=== PATIENT | male | born 1990 | race Two or more races ===

== ENCOUNTER 2019-09-04 00:21 | Emergency (ER) | payer SELFPAY ==
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
[2019-09-04 00:21] VITALS: BP 123/93; PULSE 84; RESP 14; TEMP 36.3; O2SAT 100
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
[2019-09-04] MEDS: CYCLOBENZAPRINE HCL 10 MG TABLET PO (00:50)
[2019-09-04] MEDS: IBUPROFEN 400 MG TABLET 800 MG PO (00:50)
[2019-09-04 01:20] VITALS: TEMP 36.3
[2019-09-04 01:54] VITALS: BP 111/70; PULSE 77; RESP 20; O2SAT 100
== END 2019-09-04 01:56 | disposition home or self-care (01) ==
PROVIDERS: Emergency Provider General Practice
DX: S16.1XXA Strain of muscle, fascia and tendon at neck level, initial encounter (principal); S39.012A Strain of muscle, fascia and tendon of lower back, initial encounter; M25.511 Pain in right shoulder; V43.52XA Car driver injured in collision with other type car in traffic accident, initial encounter
CPT/HCPCS: 72125; 73030; 99284; A9270

== ENCOUNTER 2020-08-12 11:52 | Observation (INO) | payer OTHER, SELFPAY ==
[2020-08-12] VITALS (7 sets, daily range): BP systolic 110–145; BP diastolic 64–96; PULSE 100–115; RESP 14–21; TEMP 36.3–37.1; O2SAT 98–99; BMI 27.3
--- NOTE | ~2020-08-12 | CT_ITS ---
EXAMINATION: CT soft tissue neck w con DATE: 08/12/2020 16:56 INDICATION: Sore throat. Abscess. TECHNIQUE: Computed tomography (CT) of the neck was performed with 75 mL Omnipaque-350 intravenous co ntrast. Automated exposure control and iterative reconstruction technique were employed. The dose-christophe gth product was 507.29 mGy-cm. COMPARISON: Cervical spine CT 09/04/2019 FINDINGS: The adenoids and palatine tonsils are enlarged. There is mild bilateral high internal jugul ar chain lymphadenopathy. There is mildly enlarged left mid internal jugular chain lymph node. There is mild mucosal thickening in the paranasal sinuses. There is a carious lesion of tooth #1. IMPRESSION: 1. Enlarged adenoids and palatine tonsils. No abscess. 2. Carious lesion of tooth #1. 3. Mild bilateral internal jugular chain lymphadenopathy, likely reactive. Reviewed, dictated and finalized at location A.
--- NOTE | ~2020-08-12 | XR_ITS ---
EXAMINATION: XR chest 1V portable INDICATION: Head congestion and cough TECHNIQUE: Portable AP chest at 1555 hours COMPARISON: 01/30/2017 FINDINGS: There are patchy opacities of the lung bases. No pleural effusion or pneumothorax is identi fied. The cardiomediastinal silhouette is normal. IMPRESSION: 1. Patchy opacities of the lung bases, consistent with atelectasis versus pneumonia. Reviewed, dictated and finalized at location B. IMPRESSION: 1. Patchy opacities of the lung bases, consistent with atelectasis versus pneum onia.
--- NOTE | ~2020-08-12 | CT_ITS ---
EXAMINATION: CT chest abdomen pelvis wo con DATE: 08/13/2020 09:23 INDICATION: Cough. Leukocytosis. TECHNIQUE: Computed tomography (CT) of the chest, abdomen, and pelvis was performed without intraveno us contrast. Automated exposure control and iterative reconstruction technique were employed. The dos e-length product was 701.12 mGy-cm. COMPARISON: None FINDINGS: CHEST CT: Lungs are clear with no pneumonia or other pulmonary infiltrates, pulmonary edema, pleural effusion o r pneumothorax. Heart size is normal. No pericardial effusion. Thoracic aorta is normal in caliber. S mall amount of wispy soft tissue and stress with fat in the anterior mediastinum with the multangular configuration of residual thymic tissue. No pathologically enlarged thoracic lymphadenopathy. Bones are unremarkable. ABDOMEN/PELVIS CT: Liver, gallbladder, pancreas, bilateral adrenal glands and kidneys are normal. Splenomegaly measuring 16.5 cm maximal craniocaudal length. There are few scattered colonic diverticula without adjacent in flammatory change to suggest diverticulitis. Small bowel and appendix are normal. There is increased density in the bladder which are absent residual excreted contrast from an earlier contrast-enhanced CT of the neck performed 1 day prior. No free intraperitoneal gas or fluid. No pathologically enlarge d abdominal or pelvic lymphadenopathy. Bones are unremarkable. IMPRESSION: 1. Clear lungs. No acute cardiopulmonary disease. 2. Nonspecific splenomegaly. No other acute intra-abdominal/pelvic process. Reviewed, dictated and finalized at location A.
--- NOTE | 2020-08-12 14:55 | ED.URI ---
HPI - URI/Sore Throat General Chief Complaint: Upper Respiratory Infection <Juan Luis Paul PA-C - Last Filed: 08/12/20 17:40> Stated Complaint: sore thoat, cold sx <Juan Luis Paul PA-C - Last Filed: 08/12/20 17:40> Time Seen by Provider: 08/12/20 14:19 <Juan Luis Paul PA-C - Last Filed: 08/12/20 17:40> Source: patient <Juan Luis Paul PA-C - Last Filed: 08/12/20 17:40> Mode of arrival: ambulatory <Juan Luis Paul PA-C - Last Filed: 08/12/20 17:40> Limitations: no limitations <Juan Luis Paul PA-C - Last Filed: 08/12/20 17:40> History of Present Illness HPI Narrative: Patient is a 30-year-old male who presents to emergency department for evaluation of upper respiratory symptoms that have been present for the last 10 days. Patient was seen in started on amoxicillin by Dr. Carranza. Patient notes he has been taking it for several days with no improvement. Notes aching pain of the throat worse with swallowing with difficulty sleeping. Patient also notes cough congestion rhinorrhea. Patient has been attempting [id number] medications with minimal improvement. <Juan Luis Paul PA-C - Last Filed: 08/12/20 17:40> Related Data Allergies/Adverse Reactions: Allergies Allergy/AdvReac Type Severity Reaction Status Date / Time No Known Allergies Allergy Verified 08/12/20 14:18 <Juan Luis Paul PA-C - Last Filed: 08/12/20 17:40> Review of Systems Review of Systems: All systems reviewed & are unremarkable except as noted in HPI and below <Juan Luis Paul PA-C - Last Filed: 08/12/20 17:40> [facility] [place] Past Medical History Medical History: Medical History Patient denies medical problems <Juan Luis Paul PA-C - Last Filed: 08/12/20 17:40> Social History Social History: Social History Smoking packs per day: 1 Smoking cigarettes per day: 20.0 Substance use: never Gender identity (if verbalized by the patient): Male <Juan Luis Paul PA-C - Last Filed: 08/12/20 17:40> Exam Narrative: Exam Narrative: GENERAL: Ill-appearing, well-nourished, and in no acute distress. HEAD: Normocephalic, atraumatic. EYES: PERRLA and EOMI. ENT: Nares clear, no rhinorrhea or epistaxis. Mucous membranes moist. Patient with erythema and slight tonsillar hypertrophy no exudate. No trismus or drooling NECK: Supple. No adenopathy or masses. No stridor CHEST: Clear to auscultation. No respiratory distress. Coarse breath sounds on auscultation HEART: Regular rate and rhythm. No murmur heard. Normal peripheral pulses. EXTREMITIES: Normal range of motion. No edema. SKIN: Warm, dry, no rash. NEURO: No focal deficits. Alert and oriented x3. PSYCH: Normal mood and affect. <Juan Luis Paul PA-C - Last Filed: 08/12/20 17:40> Course Course Emergency Course: Patient in the room at this time had improvement with medications will be brought in for pneumonia will be a person of interest reswabbed for Covid strep was negative we will also have mono test added patient agreeing to stay in hospital hemodynamically stable at this time ABCs and vital signs intact and stable <Juan Luis Paul PA-C - Last Filed: 08/12/20 17:40> LOT ASSOCIATE/PA Physician Supervision For this patient encounter, I reviewed the LOT ASSOCIATE or PA documentation, treatment plan, and medical decision making; and I had [id number] time with this patient.PAtient presented with URI symptoms for 10 days despite taking antibiotics. he has been found to be tachycardic with leukocytosis. He has sepsis due to pneumonia. He is in no acute distress. <Juany Oconnor MD - Last Filed: 08/12/20 18:19> Consultations Consultation #1: Case discussed with hospitalist Luh was agreed to accept the patient <MÓNICA Hudson Last Filed: 08/12/20 17:40> Date: 08/12/20 <Nazario Hudson
[2020-08-12] MEDS: SODIUM CHLORIDE 0.9% IV 1,000 ML 999 ML IV CONT (15:40)
[2020-08-12] MEDS: KETOROLAC 30 MG/ML VIAL (*BKC) IV PUSH (15:40)
[2020-08-12 15:59] LABS: Basophils Absolute Auto 0.2 K/mm3 (0.0-0.1); Eosinophils Absolute Auto 0.1 K/mm3 (0-0.3); Eosinophils Percent Auto 0.3 % (0-4.4); Hematocrit 41.8 % (42.0-52.0); Immature Granulocyte Absolute 0.09 K/mm3 (0.00-0.031); Immature Granulocyte Percent A 0.5 % (0-0.5); Lymphocytes Absolute Auto 10.61 K/mm3 (0.9-3.2); Lymphocytes Percent Auto 53.1 % (18.3-44.2); Mean Corpuscular HGB Conc 33.5 g/dl (32-36); Mean Corpuscular Hemoglobin 28.5 pg (26-34); Mean Corpuscular Volume 85.1 fl (80-100); Mean Platelet Volume 10.5 fl (7.4-10.4); Monocytes Absolute Auto 2.5 K/mm3 (0.1-0.6); Monocytes Percent Auto 12.7 % (2.6-8.5); Neutrophils Absolute Auto 6.5 K/mm3 (1.3-6.7); Neutrophils Percent Auto 32.4 % (45.5-73.1); Platelet Count Result 224 k/mm3 (150-375); Red Blood Count 4.91 M/mm3 (4.6-6.20); Red Cell Distribution Width 13.7 % (11.5-14.5)
[2020-08-12 16:11] LABS: Anion Gap 8 mmol/L (8-16); Blood Urea Nitrogen 11 mg/dL (9-20); CRP 7.3 mg/dL (<1.0); Calcium 9.1 mg/dL (8.4-10.2); Carbon Dioxide 24 mmol/L (22-30); Chloride 107 mmol/L (98-107); Estimated CRCL calculation 114 ml/min; Estimated Glomerular Filt Rate > 60; Glucose 99 mg/dL (75-110); Potassium 4.1 mmol/L (3.4-5.0); Sodium 139 mmol/L (137-145)
[2020-08-12 16:16] LABS: Atypical Lymphocytes Present; Platelet Estimate Adequate (Adequate)
[2020-08-12] MEDS: ALBUTEROL SULFATE (*SP) INHALER 1 PUFF (16:34)
[2020-08-12 17:47] LABS: Alanine Aminotransferase 223 U/L (4-50); Albumin Level 3.8 g/dL (3.5-5.1); Alkaline Phosphatase 85 U/L (38-126); Aspartate Amino Transferase 100 U/L (17-59); Bilirubin,Total 0.5 mg/dL (0.2-1.3)
[2020-08-12 17:48] LABS: Lactic Acid Reflex 1.1 mmol/L (0.7-2.1)
[2020-08-12 19:08] LABS: Monoscreen Positive (Negative); Negative Monotest Control Negative (Negative); Positive Monotest Control Positive (Positive)
--- NOTE | 2020-08-12 19:44 | ADMGEN ---
This patient, Praveen Chun, was admitted to [facility] Surg Room 311-01. Patient/family oriented to hospital policies and general routines including ID bracelet, bed and alarms, visiting hours, pain management, procedures, bathroom and other care routines, personal items, smoking policy, room service/diet, and visiting hours. Information on how to activate the Rapid Response Team has been discussed. Patient/Family are encouraged to report perceived risks to care and to ask questions if they do not understand what they are told or what they should do.
[2020-08-12] MEDS: LACTATED RINGERS 1,000 ML 125 ML IV CONT (19:51)
[2020-08-12] MEDS: FAMOTIDINE 20 MG/2 ML VIAL IV PUSH (20:40)
[2020-08-13] VITALS: BP 124/70; PULSE 83; RESP 18; TEMP 36.3; O2SAT 98
--- NOTE | 2020-08-13 00:03 | PM.IMHP ---
H&P: HPI History of Present Illness Date/Time: 08/12/20 23:30 Chief Complaint: Sore throat, cough Narrative: Previously healthy 30-year-old male who presented to the ER from home with upper respiratory symptoms for the last 10 days or so. The patient reported that for last 10 days he has been having severe sore throat and subjective fevers. His measure temperature was 98?. He reported that approximately 14 days ago he began having cough that was productive of small amount of sputum. He reported that the cough was bad for several days but then improved. He then subsequently developed sore throat with difficulty swallowing. He reported that the pain in his throat with a 10/10 in intensity and he was unable to sleep. He had decreased oral intake. He reported that initially with the symptoms he had had a headache that was associated with his cough. His headache has since resolved. He denies any nausea or vomiting. He has had some rhinorrhea and nasal congestion. He had tried some [id number] medications with only minimal relief in his symptoms. He was evaluated by Dr. Carranza in given the prescription for amoxicillin. He told me that he took amoxicillin for about 4 days with no relief in his symptoms. 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 He does not have any known COVID-19 exposures or ill contacts. He denies any loss of sense of taste or smell. He had a rapid strep test performed in the ER that was negative. The patient reports that his symptoms have improved significantly. In the ER he received dexamethasone, azithromycin and Rocephin. And that he has been able to eat and drink without difficulty. Review of Systems Review of Systems: Narrative: 12 systems were reviewed with pertinent positives and negatives per HPI. Except as documented in the HPI, all other systems were reviewed and are negative. [facility] Past Medical History Medical History Patient denies medical problems Surgical History Surgical History No pertinent past surgical history Family History Family History (Updated 08/13/20 @ 00:05 by Connie Gomez DO) Other No significant family history Social History Social History (Updated 08/13/20 @ 01:17 by Connie Gomez DO) Social History: He is single and has never been . He was originally from [place] but has been in the [place] for 5 years. He smokes between 1.5-2 packs of cigarettes per day since the age of 14. He only rarely drinks alcohol in small amounts. He occasionally uses marijuana. 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 Smoking packs per day: 1.5 Smoking cigarettes per day: 30.0 Years smoked: 16 Smoking pack-years: 24.00 Smoking status: Current every day smoker Tobacco type: cigarettes Alcohol intake: current Drinks per week: 1 Substance use: current Substance use type: marijuana Gender identity (if verbalized by the patient): Male Spiritual care concerns: No Meds Home Medications and Allergies Home Medications Medication Instructions Recorded Confirmed Type No Home Medications 08/12/20 08/12/20 History Allergies Allergy/AdvReac Type Severity Reaction Status Date / Time No Known Allergies Allergy Verified 08/12/20 20:21 Vital Signs Vital Signs - 24 hr 08/12/20 12:35 08/12/20 14:18 08/12/20 15:57 Temperature 98.7 F Pulse Rate 115 H 108 H 102 H Respiratory Rate 18 20 14 Blood Pressure 113/85 145/96 H 121/87 Pulse Oximetry 98 98 99 08/12/20 16:57 08/12/20 17:53 08/12/20 19:23 Temperature Pulse Rate 111 H 102 H 103 H Respiratory Rate 21 H 14 20 Blood Pressure 119/68 110/64 118/78 Pulse Oximetry 99 99 99 08/12/20 20:00 08/13/20 00:00 Temperature 97.3 F L 97.4 F L Pulse Rate 100 83 Respiratory Rate 18 18 Blood Pressure 125/73 124/70 Pulse Oximetry 98 98 Exam Narrative: Exam Narrative: PHYS
[2020-08-13] MEDS: LACTATED RINGERS 1,000 ML 125 ML IV CONT ×2 (02:18→10:54)
[2020-08-13 04:00] VITALS: BP 118/67; PULSE 96; RESP 18; TEMP 36.4; O2SAT 97
[2020-08-13 06:31] LABS: Basophils Absolute Auto 0.1 K/mm3 (0.0-0.1); Basophils Percent Auto 0.8 % (0.2-1.2); Hematocrit 39.1 % (42.0-52.0); Hemoglobin 12.8 g/dL (14.0-18.0); Immature Granulocyte Absolute 0.09 K/mm3 (0.00-0.031); Immature Granulocyte Percent A 0.6 % (0-0.5); Lymphocytes Absolute Auto 7.95 K/mm3 (0.9-3.2); Lymphocytes Percent Auto 50.1 % (18.3-44.2); Mean Corpuscular HGB Conc 32.7 g/dl (32-36); Mean Corpuscular Volume 85.6 fl (80-100); Mean Platelet Volume 10.9 fl (7.4-10.4); Monocytes Absolute Auto 0.8 K/mm3 (0.1-0.6); Monocytes Percent Auto 4.7 % (2.6-8.5); Neutrophils Percent Auto 43.8 % (45.5-73.1); Platelet Count Result 231 k/mm3 (150-375); Red Blood Count 4.57 M/mm3 (4.6-6.20); Red Cell Distribution Width 13.5 % (11.5-14.5); White Blood Count 15.9 K/mm3 (4.5-10.0)
[2020-08-13 06:50] LABS: Alanine Aminotransferase 185 U/L (4-50); Albumin Level 3.6 g/dL (3.5-5.1); Alkaline Phosphatase 72 U/L (38-126); Anion Gap 3 mmol/L (8-16); Aspartate Amino Transferase 70 U/L (17-59); Bilirubin,Total 0.3 mg/dL (0.2-1.3); Blood Urea Nitrogen 12 mg/dL (9-20); Calcium 8.6 mg/dL (8.4-10.2); Carbon Dioxide 28 mmol/L (22-30); Chloride 109 mmol/L (98-107); Estimated CRCL calculation 129 ml/min; Estimated Glomerular Filt Rate > 60; Glucose 116 mg/dL (75-110); Potassium 4.4 mmol/L (3.4-5.0); Sodium 140 mmol/L (137-145)
[2020-08-13 08:00] VITALS: BP 110/73; PULSE 87; RESP 18; TEMP 36.9; O2SAT 100
[2020-08-13 10:17] VITALS: O2SAT 97
[2020-08-13 12:00] VITALS: BP 113/64; PULSE 77; RESP 16; TEMP 36.7; O2SAT 100
--- NOTE | 2020-08-13 12:41 | PM.DS ---
DS: Admitting Diagnosis Admitting Diagnosis Admitting Diagnosis: (1) Mononucleosis: (2) Sepsis: (3) Tobacco abuse disorder: DS: Discharge Diagnosis Discharge Diagnosis (1) Mononucleosis: Qualifiers: Infectious mononucleosis etiology: unspecified organism Infectious mononucleosis complication: without complication Qualified Code(s): B27.90 - Infectious mononucleosis, unspecified without complication Code(s): B27.90 - Infectious mononucleosis, unspecified without complication Status: Acute Assessment and Plan: Supportive care will follow-up in the outpatient setting self-limiting condition should resolve on its own (2) Pneumonia: Code(s): J18.9 - Pneumonia, unspecified organism Status: Acute Assessment and Plan: doubtful of pneumonia (3) Sepsis: Qualifiers: Sepsis acute organ dysfunction status: without acute organ dysfunction Sepsis type: sepsis due to unspecified organism Qualified Code(s): A41.9 - Sepsis, unspecified organism Code(s): A41.9 - Sepsis, unspecified organism Status: Acute Assessment and Plan: more along the lines of SIRS (4) Splenomegaly: Code(s): R16.1 - Splenomegaly, not elsewhere classified Status: Acute Assessment and Plan: avoid contact sports (5) Tobacco abuse disorder: Code(s): Z72.0 - Tobacco use Status: Acute Assessment and Plan: encouraged tobacco cessation (6) Acute bacterial tonsillitis: Code(s): J03.80 - Acute tonsillitis due to other specified organisms; B96.89 - Other specified bacterial agents as the cause of diseases classified elsewhere Status: Acute Assessment and Plan: will complete course of amoxicillin for 7 days in the outpatient setting DS: Summary Hospital Course Reason for hospitalization: sore throat Hospital Course: this is a 30-year-old male with no significant past medical history tobacco dependence patient presented to the emergency room due to sore throat and lymphadenopathy is with low-grade fever and overall general malaise for the last couple of days or so he tested positive for mononucleosis. There were no events of overnight. Patient will be discharged home today will follow-up in outpatient setting with his primary care physician. will complete a course of amoxicillin for plaque tonsillitis. procedures done: No procedures consults obtained: No consults Status at Discharge Cognitive/behavioral status at discharge: AAOX3 Functional status at discharge: independent ambulation Time Spent with Patient Time attestation: Total time spent providing and/or coordinating discharge services: Time spent: Greater than 30 minutes Exam Narrative: Exam Narrative: well-appearing sitting in bed Const: General: comfortable, no acute distress, well developed, alert and awake Nutritional Appearance: average body habitus Orientation/consciousness: patient oriented x3 HENMT: Head: normal to inspection, normocephalic and atraumatic Ears: hearing grossly normal bilaterally Face and sinus: normal facial exam Throat: abnormal tonsil bilateral other ( plaques) Eyes: General: appearance normal, both eyes and all related structures Pupils: Equal, round and reactive pupils present EOM: EOMs intact bilaterally Neck: Neck: full ROM, no lymphadenopathy and no JVD Thyroid: thyroid normal Lymphatic: no lymphadenopathy noted Resp: Effort & Inspection: normal respiratory effort and able to speak in complete sentences Auscultation: clear to auscultation bilaterally Cardio: Jugular venous distension: no JVD Rate: regular rate Rhythm: regular rhythm Heart sounds: S1 normal heart sound present and S2 normal heart sound present GI: GI Palp: Yes Soft to palpation and Yes No hepatosplenomegaly present : General: Yes deferred Skin: Rashes: no rashes Wounds: no wounds Neuro: General: patient or
[2020-08-13 19:44] LABS: SARS-CoV-2 RNA PCR Negative
== END 2020-08-13 13:15 | disposition home or self-care (01) ==
LOC: ANHED 17:40 → ANH3MEDSUR 19:54
PROVIDERS: Emergency Medicine Emergency Medical Services; Admitting Provider Internal Medicine; Emergency Provider General Practice; PCP Emergency Medicine; Visit Provider Internal Medicine
DX: B27.90 Infectious mononucleosis, unspecified without complication (principal); A41.9 Sepsis, unspecified organism; B96.89 Other specified bacterial agents as the cause of diseases classified elsewhere; J03.80 Acute tonsillitis due to other specified organisms; R16.1 Splenomegaly, not elsewhere classified; F17.210 Nicotine dependence, cigarettes, uncomplicated; Z20.822 Contact with and (suspected) exposure to COVID-19
CPT/HCPCS: 36415; 70491; 71045; 71250; 74176; 80048; 80053; 80076; 83605; 85025; 86140; 86308; 87040; 87081; 87880; 96360; 96361; 96365; 96368; 96375; 99285; A9270; C9803; G0378; G0379; J0456; J0696; J1100; J1885; J7030; J7120; Q9967; U0003; U0005